=== PATIENT | male | born 1980 | race Caucasian/White ===

== ENCOUNTER 2017-02-11 13:15 | Emergency (ER) | payer MEDICAID ==
[2017-02-11 13:23] VITALS: BMI 30.3
[2017-02-11] MEDS ORDERED: CLEOCIN 600 MG IV PREMIX 600 MG/50 ML BAG IV ONE (17:10)
[2017-02-11] MEDS ORDERED: TORADOL 60 MG VIAL IM ONE ×2 (17:11→20:04)
--- NOTE | 2017-02-11 17:12 | DR.BITE ---
HPI - Time Seen Time seen: 17:00 - PCP Primary Care Physician: nida - HPI Comment HPI Comment: SWELLING, REDNESS AND PAIN PRESENT. - Complaint/Symptoms Chief Complaint Doctor Comments: ABSCESS AND CELLULITIS BACK OF LT HAND TIMES 2 DAYS Chief Complaint:: abcess to lt hand-has swelling to back of lt hand x 2 days- says he was pruning roses but unsure if f.o. in hand - Nurses notes reviewed Nurses Notes Review: Yes - Source History Provided: Patient - Mode of Arrival Mode of Arrival: Ambulatory - Duration Duration: Constant Duration: Days - Location Location: Left, Hand - Timing Onset of Chief Complaint: 02/09/17 ago: Days - Context Caused by: Unknown (PRUNING ROSES WHEN PT SUSTAIN WOUND) Symptoms: Rash, Redness, Swelling, Pustule wound Immunization Status of Animal: Current Tetanus Immunization Current: Yes - Severity Pain: Moderate Puritis Severity: None SOB Severity: None - Associated signs and symptoms Associated signs and symptoms: Redness, Swelling, Pus PMH - PMH Past Medical History: No Past Medical History: Hypertension Past Surgical History: No - Family History History of Family Medical Conditions: No Family Medical History: MD, Hypertension - Social History Does patient currently use any type of tobacco product: Yes Have you used tobacco products in the last 12 months: Yes Type of Tobacco Use: Cigarettes Do you use any recreational Drugs:: Yes (PAIN PILLS) - infectious screening In the last 2 months have you had wt loss of >10#?: NO Have you had fever, night sweats or hemotysis?: No Have you traveled outside the country in the last 6 months?: No Isolation: Standard ROS - Review of Systems Constitutional: No Symptoms Reported Eyes: No Symptoms Reported ENTM: No Symptoms Reported Respiratoy: No Symptoms Reported Cardiovascular: No Symptoms Reported Gastrointestinal/Abdominal: No Symptoms Reported Genitourinary: No Symptoms Reported Neurological: No Symptoms Reported Musculoskeletal: No Symptoms Reported, Left, Hand Integumentary: Change in Color, Lesions, Wound Hematologic/Lymphatic: No Symptoms Reported Endocrine: No Symptoms Reported All Other Systems: Reviewed and Negative PE - Vital Signs Vital Signs: Temp Pulse Pulse Resp BP BP BP 02/11/17 20:30 88 16 124/82 02/11/17 13:17 98.2 F 109 H 16 183/96 11/05/12 23:46 143/86 06/14/12 18:27 164/93 Pulse Ox 02/11/17 20:30 99 02/11/17 13:17 99 11/05/12 23:46 06/14/12 18:27 - Constitutional Limitations: No Limitations General Appearance: Alert - Head Head Exam: Normal Inspection - Eyes Eye exam: Normal Appearance - ENT ENT Exam: Normal External Ear Exam - Neck Neck Exam: Normal Inspection - Chest Chest Inspection: Symmetric Chest Wall Rise - Respiratory Respiratory Exam: Normal Lung Sounds Bilat Respiratory Exam: Bilateral Clear to Auscultation - Cardiovascular Cardiovascular Exam: Regular Rate, Normal Rhythm, Normal Heart Sounds - Abdominal Exam Abdominal Exam: Normal Bowel Sounds, Soft, Dimnished Bowel Sounds - Extremities Extremities Exam: Tenderness (REDNESS, TENDERNESS, AND SWELLING BACK OF LT HAND. ) - Back Back Exam: Normal Inspection - Neurologic Neurological Exam: Alert, Oriented X3 - Skin Skin Exam: Warm Type of Lesion: Abscess Description: Tenderness, Erythematous, Swelling MDM - Additional Information Obtained From Additional information provided by: Family - Differential Diagnosis Differential Diagnosis: Cellulitis, Puncture wound Other Differential Diagnosis: CELLULITIS LT HAND. Course - Treatment Treatment: SEE ORDERS. - Education/Counseling Education/Counseling: Patient, Family, Education Educated On: Treatment, Diagnosis, Needs for Follow Up ROR - Labs Reviewed Laboratory Results Reviewed?: Yes Result Diagrams: 02/11/17 17:43 02/11/17 17:43 Laboratory: 02/11/17 20:12 Arm - Abscess Gram Stain - Final WBC 7.4 X10^3/uL (3.6-10.0) 02/11/17 17:43 RBC 5.05 X10^6/uL (4.7-6.0) 02/11/17 17:43 Hgb 15.0 g/dL (13.5-18.0) 02/11/17 17:43 Hct 42.7 % (42.0-54.0) 02/11/17 17:43 MCV 84.4 fL (80.0-100.0) 02/11/17 17:43 MCH 29.7 pg (27.0-34.0) 02/11/17 17:43 MCHC 35.2 g/dL (33.0-35.0) H 02/11/17 17:43 RDW 14.1 % (11.6-16.5) 02/11/17 17:43 Plt Count 241 X10^3/uL (150.0-450.0) 02/11/17 17:43 MPV 7.5 fL (7.4-11.0) 02/11/17 17:43 Neut % 66.9 % (42.0-75.0) 02/11/17 17:43 Lymph % 22.8 % (21.0-51.0) 02/11/17 17:43 Meade % 8.6 % (0.0-13.0) 02/11/17 17:43 Eos % 0.4 % (0.9-2.9) L 02/11/17 17:43 Baso % 1.3 % (0.2-1.0) H 02/11/17 17:43 Neut # 5.0 x10^3/uL (2.2-4.8) H 02/11/17 17:43 Lymph # 1.7 X10^3/uL (1.3-2.9) 02/11/17 17:43 Meade # 0.6 x10^3/uL (0.3-0.8) 02/11/17 17:43 Eos # 0.0 x10^3/uL (0.0-0.2) 02/11/17 17:43 Baso # 0.1 X10^3/uL (0.0-0.1) 02/11/17 17:43 Absolute Nucleated RBC 0.1 /100WBC 02/11/17 17:43 Sodium 135 mmol/L (136-145) L 02/11/17 17:43 Corrected Sodium TNP 02/11/17 17:43 Potassium 4.6 mmol/L (3.5-5.1) 02/11/17 17:43 Chloride 100 mmol/L (98-107) 02/11/17 17:43 Carbon Dioxide 25.4 mmol/L (21-32) 02/11/17 17:43 BUN 18 mg/dL (7-18) 02/11/17 17:43 Creatinine 0.88 mg/dL (0.70-1.30) 02/11/17 17:43 Est GFR (MDRD) Af Amer > 60 (>60) 02/11/17 17:43 Est GFR (MDRD) Non-Af > 60 (>60) 02/11/17 17:43 Glucose 101 mg/dL (65-99) H 02/11/17 17:43 Calcium 9.3 mg/dL (8.5-10.1) 02/11/17 17:43 Corrected Calcium TNP 02/11/17 17:43 Total Bilirubin 0.40 mg/dL (0.2-1.0) 02/11/17 17:43 AST 22 Units/L (15-37) 02/11/17 17:43 ALT 15 Units/L (12-78) 02/11/17 17:43 Alkaline Phosphatase 75 Units/L (46-116) 02/11/17 17:43 Total Protein 8.1 g/dL (6.4-8.2) 02/11/17 17:43 Albumin 4.0 g/dL (3.4-5.0) 02/11/17 17:43 Globulin 4.1 g/dL (2.5-4.5) 02/11/17 17:43 Albumin/Globulin Ratio 1.0 Ratio (1.1-2.1) L 02/11/17 17:43 - XRAY XRAY Interpreted by: Radiologist XRAY Findings: REPORT DISCUSS WITH PATIENT. Procedures - Incision and Drainage Blade Size: 11 I & D Procedure: betadine prep, sterile dressing applied, gauze wick placed Progress: I&D DONE, 2CC PUS DRAIN. IODINE GAUZE PLACE IN WOUND. - Diagnosis Discharge Problem: Abscess of left hand, Cellulitis of left hand - Discharge Plan Disposition: 01 HOME, SELF-CARE Condition: Stable Prescriptions: Clindamycin HCl 300 mg PO Q6H #40 cap Ibuprofen [MOTRIN TAB 800 MG *] 800 mg PO Q8H PRN #20 tab PRN Reason: Pain/Inflammation Promethazine HCl [PHENERGAN TAB 25 MG *] 25 mg PO Q8H PRN #12 tab PRN Reason: Nausea/Vomiting Sulfamethoxazole/Trimethoprim [Bactrim 400-80 mg] 1 tab PO Q12H #20 tab - Follow ups/Referrals Follow ups/Referrals: Jarett Mendoza [Primary Care Provider] - 3 days - Instructions Instructions: Abscess, [id number], Cellulitis, Adult, [id number] Additional Instructions: RETURN TO ED IF WORSE.
[2017-02-11] MEDS ORDERED: TORADOL 60 MG VIAL ONE ×2 (17:33→20:18)
[2017-02-11] MEDS ORDERED: CLEOCIN VIAL 600 MG ONE (17:33)
[2017-02-11] MEDS ORDERED: NS 100 ML IV 100 ML IV ONE (17:34)
--- NOTE | 2017-02-11 17:41 | RAD ---
History: Left hand swelling and pain after trimming erna pushes 4 days ago Study: AP and oblique and lateral views of the left hand findings: The fingers are in flexion on all projections. There is severe dorsal soft tissue swelling. No radiopaque soft tissue foreign body is d emonstrated. No osteophyte formation is demonstrated. Impression: Prominent dorsal soft tissue swelling, no bony abnormality or radiopaque foreign body sherly dent. Reported By:
[2017-02-11 17:59] LABS: BASOPHILS # (AUTO) 0.1 X10^3/uL (0.0-0.1); BASOPHILS % (AUTO) 1.3 % (0.2-1.0); EOSINOPHILS % (AUTO) 0.4 % (0.9-2.9); HEMATOCRIT 42.7 % (42.0-54.0); LYMPHOCYTES # (AUTO) 1.7 X10^3/uL (1.3-2.9); LYMPHOCYTES % (AUTO) 22.8 % (21.0-51.0); MEAN CORPUSCULAR HEMOGLOBIN 29.7 pg (27.0-34.0); MEAN CORPUSCULAR HGB CONC 35.2 g/dL (33.0-35.0); MEAN CORPUSCULAR VOLUME 84.4 fL (80.0-100.0); MEAN PLATELET VOLUME 7.5 fL (7.4-11.0); MONOCYTES # (AUTO) 0.6 x10^3/uL (0.3-0.8); MONOCYTES % (AUTO) 8.6 % (0.0-13.0); NEUTROPHILS % (AUTO) 66.9 % (42.0-75.0); PLATELET COUNT 241 X10^3/uL (150.0-450.0); RED BLOOD COUNT 5.05 X10^6/uL (4.7-6.0); RED CELL DISTRIBUTION WIDTH 14.1 % (11.6-16.5); WHITE BLOOD COUNT 7.4 X10^3/uL (3.6-10.0)
[2017-02-11 18:07] LABS: ALANINE AMINOTRANSFERASE 15 Units/L (12-78); ALKALINE PHOSPHATASE 75 Units/L (46-116); ASPARTATE AMINO TRANSFERASE 22 Units/L (15-37); BLOOD UREA NITROGEN 18 mg/dL (7-18); CALCIUM 9.3 mg/dL (8.5-10.1); CARBON DIOXIDE 25.4 mmol/L (21-32); CHLORIDE 100 mmol/L (98-107); CREATININE 0.88 mg/dL (0.70-1.30); SODIUM 135 mmol/L (136-145); TOTAL PROTEIN 8.1 g/dL (6.4-8.2); eGFR BLACK RACES > 60 (>60); eGFR NON BLACK RACES > 60 (>60)
[2017-02-11] MEDS ORDERED: XYLOCAINE 1 % (PLAIN) ONE (19:46)
[2017-02-11] MEDS ORDERED: BACTRIM DS TAB PO ONE ×2 (19:54→20:18)
[2017-02-11] MEDS ORDERED: CLEOCIN PO ONE (19:55)
[2017-02-11] MEDS ORDERED: PHENERGAN INJ 25 MG IM ONE (20:04)
[2017-02-11] MEDS ORDERED: PHENERGAN INJ 25 MG ONE (20:18)
[2017-02-11] MEDS ORDERED: CLEOCIN ONE (20:18)
[2017-02-11 20:38] VITALS: BP 124/82
== END 2017-02-11 20:35 | disposition home or self-care (01) ==
LOC: ER 13:46
PROC: 0X9K0ZZ Drainage of Left Hand, Open Approach (ICD-10-PCS; principal; 2017-02-11)
DX: L02.512 Cutaneous abscess of left hand (principal); L03.114 Cellulitis of left upper limb
CPT/HCPCS: 10060; 36415; 73130; 80053; 85025; 87040; 87070; 87075; 87205; 96365; 96372; 96374; 99283; 99284; A4222; J1885; J2001; J2550; S0077